=== PATIENT | male | born 1960 | race Caucasian/White ===

== ENCOUNTER 2019-03-13 09:52 | Emergency (ER) | payer BC ==
[~2019-03-13] VITALS: Ht 172.7 cm; Wt 68.0 kg
[2019-03-13 10:36] VITALS: BP_SYST 148
--- NOTE | 2019-03-13 13:27 | NUR ---
Patient placed in chair 1 for exam. MSE completed by myself.
--- NOTE | 2019-03-13 13:28 | NUR ---
Patient to ER bed h1 to gown for evaluation. Side rails up.
[2019-03-13] MEDS ORDERED: ACETAMINOPHEN 500 MG TABLET PO ONE (13:30)
--- NOTE | 2019-03-13 13:38 | NUR ---
Pt presenst to ED for evaluation s/p mech fall at home w/o syncope.Pt c/o head pain
--- NOTE | 2019-03-13 13:40 | NUR ---
HARDIK Lofton at bedside examining patient.
--- NOTE | 2019-03-13 18:40 | NUR ---
Patient given written and verbal discharge instructions and verbalizes understanding. ER MD discussed with patient the results and treatment provided. Patient in stable condition. ID arm band removed. Rx of tylenol given. Patient educated on pain management and to follow up with PMD. Pain Scale 0. Opportunity for questions provided and answered. Medication side effect fact sheet provided.
--- NOTE | 2019-03-14 17:50 | NUR ---
Note genevaone in EDM - 03/14/19 at 1943 by ELLA Patient given written and verbal discharge instructions and verbalizes understanding. ER discussed with patient the results and treatment provided. Patient in stable condition. ID arm band removed. Rx of tylenol given. Patient educated on pain management and to follow up with PMD. Pain Scale 0. Opportunity for questions provided and answered. Medication side effect fact sheet provided.
[2019-03-14 18:40] VITALS: BP_SYST 141
== END 2019-03-13 18:40 | disposition left against medical advice (07) ==
LOC: SED 09:52
DX: S06.0X0A Concussion without loss of consciousness, initial encounter (principal); W18.39XA Other fall on same level, initial encounter; Y93.89 Activity, other specified; Y92.090 Kitchen in other non-institutional residence as the place of occurrence of the external cause; Y99.8 Other external cause status
CPT/HCPCS: 70450-TC; 99284